=== PATIENT | male | born 1965 | race Caucasian/White ===

== ENCOUNTER 2019-06-16 11:17 | Emergency (ER) | payer SELFPAY ==
[2019-06-16 11:38] VITALS: BP 109/70; PULSE 80; RESP 20; TEMP 38.1; O2SAT 100
--- NOTE | 2019-06-16 11:42 | ED.GENADULT ---
HPI - General Adult General Chief complaint: Skin/Abscess/Foreign Body Stated complaint: rash/bodyaches Time Seen by Provider: 06/16/19 11:42 Source: patient and RN notes reviewed Mode of arrival: ambulatory Limitations: no limitations History of Present Illness HPI narrative: 54-year-old male presents with complaints of red, raised, burning sensation, and painful rash to right arm and posterior shoulder for 4 days. No treatment. Denies new changes in personal hygiene products or laundry detergent. No new foods or medications. Right lateral neck pain that radiates into RT posterior shoulder for 5-6 days. Pain in posterior shoulder started and then rash appeared per Alexandru. No swelling, bleeding, or drainage. Denies numbness or tingling of upper or lower extremities. Denies fever, chills, headaches, weakness, fatigue, myalgia, facial swelling, throat or tongue swelling. Denies chest pain or dyspnea. Tolerating po intake well. Remains active. Complains of cold symptoms and right ear pain for 1 day. No treatment. No itching, tinnitus, or drainage to RT ear. Alexandru says he has a history of Cerumen Impaction. Dry cough. Rhinorrhea and nasal congestion. Denies chest congestion. Denies fever and chills. History of Splenectomy and ITP. Denies throat pain or decrease activity. Tolerating liquids well. Some parts of this dictation were generated by voice recognition software and may contain typographical and/or grammatical inaccuracies. Related Data Home Medications Medication Instructions Recorded Confirmed omeprazole 20 mg PO DAILY 06/16/19 06/16/19 Allergies Allergy/AdvReac Type Severity Reaction Status Date / Time Penicillins Allergy Mild RASH, Verified 06/16/19 11:37 JUMPY clindamycin Allergy Unknown Swelling Verified 06/16/19 11:37 of Lip/Tongue/Throat levofloxacin Allergy Unknown Nausea and Verified 06/16/19 11:37 Vomiting Review of Systems Review of Systems: Narrative: CONSTITUTIONAL: Denies fever, chills, sweats. EYES: Denies visual changes, redness, discharge. ENT: Complains of rhinorrhea, congestion, RT otalgia. Denies sore throat. CARDIOVASCULAR: Denies chest pain, palpitations, edema. RESPIRATORY: Denies dyspnea, wheezing. Complains of dry cough. GASTROINTESTINAL: Denies abdominal pain, nausea, vomiting, diarrhea. GENITOURINARY: Denies dysuria, hematuria, abnormal discharge. SKIN: Complains of red, raised, burning sensation, and painful rash to right arm and posterior shoulder. Denies drainage. MUSCULOSKELETAL: Denies acute back pain, joint pain, or myalgia. NEUROLOGIC: Denies numbness, or focal weakness. PSYCHIATRIC: Denies anxiety or depression. All systems reviewed & are unremarkable except as noted in HPI and below. [facility] Past Medical History Medical History (Updated 06/20/19 @ 18:33 by WILLAM Lira) History of gastroesophageal reflux (GERD) Idiopathic thrombotic thrombocytopenic purpura Surgical History Surgical History (Updated 06/20/19 @ 18:16 by WILLAM Lira) History of exploratory laparotomy History of splenectomy Social History Social History (Updated 06/20/19 @ 18:18 by WILLAM Lira) Smoking status: Current every day smoker Comments At time of signature, agree with nurse past medical, surgical, social, and family history. There is no relevant family history pertinent to the presenting complaint. Exam Narrative: Exam Narrative: GENERAL: This is a well-nourished, well-developed patient, in no apparent distress. Talking in full sentences without deficit and ambulate with steady gait without dyspnea. HEAD: normocephalic, atraumatic. EYES: PERRL. Sclera clear/white. Vision is grossly intact. EARS: Pinna is normal shape and contour. Clear external auditory canals. LT TM pearly remy with good cone of light, no erythema or suppuration. Unale to visuize the RT TM due to large amount of cerumen, will attempt to remove (se
[2019-06-16] MEDS: KETOROLAC (*BKC) 60 MG/2 ML VIAL IM (11:56)
[2019-06-16 12:49] VITALS: BP 137/87; PULSE 76; RESP 20; TEMP 37.6; O2SAT 98
== END 2019-06-16 12:49 | disposition home or self-care (01) ==
PROVIDERS: Emergency Provider Nurse Practitioner Family
DX: B02.9 Zoster without complications (principal); J00 Acute nasopharyngitis [common cold]; J01.90 Acute sinusitis, unspecified; H61.21 Impacted cerumen, right ear; K21.9 Gastro-esophageal reflux disease without esophagitis; D69.3 Immune thrombocytopenic purpura
CPT/HCPCS: 69210; 96372; 99213; G0463; J1885